=== PATIENT | female | born 1975 | race Caucasian/White ===

== ENCOUNTER 2021-06-04 02:06 | Day surgery (SDC) | payer OTHER, SELFPAY ==
[2021-06-01 12:47] VITALS: BMI 23.9
--- NOTE | 2021-06-01 13:03 | PC.NURSE ---
Report to the Outpatient Waiting Room, entrance under the green pavilion located off [facility], at time 1000 on date 06/04/21. OR Time: 1200. - You and your visitor will be asked a series of questions to screen for COVID 19 for your protection. - A mask is required within the hospital. - Only one visitor is allowed at this time. Patient visitors will be guided where to wait when not with patient. Preoperative COVID Testing Requirements: No COVID Test needed if: (proof is required; if not received patient will have Rapid Test prior to entry) - Patient has received COVID Vaccine at least 14 days prior to procedure date or - Patient has positive COVID test result within last 90 days of surgery date. COVID Test needed if above criteria is not met If not COVID vaccinated a COVID test must be conducted within 72 hours of surgery and patient is asked to isolate self from time of testing until procedure. You will go to the [facility] for your COVID testing. The [facility] is located at the corner of [address] [facility]. You will only be called if COVID results are positive and your surgeon may reschedule your elective surgery date. Patients may have clear liquids (water, carbonated beverages, clear teas, apple juice) until 3 hours prior to surgery with a maximum of 20 ounces. - No food from midnight until time of surgery - Infants may have breast milk until 4 hours before surgery, infant formula 6 hours prior to surgery. - Children will be allowed to drink immediately following surgery. If applicable, please bring a bottle or sippy cup to assist with drinking. Juice, water, soda, and popsicles are readily available. For infants on formula, please bring formula the day of surgery. Pacifiers are allowed. Take the following medications with a SIP of water the morning of surgery: BUPROPION, LAXAPRO, GABAPENTIN, FLEXERIL, ATIVAN, TRAMADOL (IF NEEDED) Medications to discontinue per physician VITAMINS Date to take last dose: 3 DAYS PRE-OP Please no make-up, nail costa rican, hairspray, perfume, deodorant, or body powder the day of surgery. No jewelry (including any body piercings) or valuables the day of surgery, leave them at home. Please take a shower or bath the night before, or the morning of, surgery with an antibacterial soap. Wear comfortable, loose fitting clothing. Children are encouraged to wear pajamas. - Jewelry must be removed prior to entering the operating room. Rings and piercings that are not removed may be cut off. - The hospital will not accept responsibility for valuables. - Please leave all valuables, including medications, at home the day of surgery. If you are going home after surgery, a licensed delivery motorcycle driver must drive you home. - NO public transportation without another adult. - We recommend that an adult stay with you for 24 hours following discharge. - We also recommend that you do not drive, make important decision, drink alcoholic beverages, or take any drugs that were not prescribed by your health care provider for at least 24 hours after your discharge time. For Pediatric surgeries, we recommend two adults accompany the child home (only one inside the building at this time). Follow any additional instructions given to you from your surgeon. Telephone instructions given to LAWSON ADAM and asked if any additional questions and then verbalized understanding. Patient advised to call surgeon office or pre surgery nurse liaison [phone] if any additional questions.
[2021-06-04] VITALS (8 sets, daily range): BP systolic 93–107; BP diastolic 59–68; PULSE 61–84; RESP 16–20; TEMP 36.1–36.4; O2SAT 96–100
--- NOTE | 2021-06-04 07:49 | ECG_ITS ---
Measurements Intervals [place] Rate: 69 P: 64 NH: 121 QRS: 49 QRSD: 90 T: 55 QT: 390 QTc: 419 Interpretive Statements SINUS RHYTHM BASELINE WANDER- V4-V6 NORMAL ECG Electronically Signed On 06-04-2021 10:47:53 [employer] by Star Garrett D.O.
--- NOTE | 2021-06-04 11:02 | WPDANESEPPF ---
Anes - Initial Pre Proc Eval Procedure: Operation Date: 06/04/21 12:00 Proposed Procedures p Laparoscopic Bilateral Salpingo Oophorectomy - Dwaine Bowen MD Date/Time: 06/04/21 11:02 Surgeon: Dwaine Bowen MD Pre Op Diagnosis: malignant tumor of breast Patient Data Age: 45 Gender: F Height: 1.6 m Weight: 59.4 kg Last Vital Signs Temp 36.1 C L 06/04/21 10:23 Pulse 84 06/04/21 10:23 Resp 16 06/04/21 10:23 BP 93/61 L 06/04/21 10:23 Pulse Ox 100 06/04/21 10:23 Allergies Allergy/AdvReac Type Severity Reaction Status Date / Time goserelin [From Zoladex] Allergy Severe Anaphylaxis Verified 06/04/21 10:45 acetaminophen [From Tylenol] Allergy Intermediate Other Verified 06/04/21 10:45 lisinopril AdvReac Intermediate Cough Verified 06/04/21 10:45 Home Medications Medication Instructions Recorded Confirmed Type bupropion HCl 450 mg PO DAILY 06/01/21 06/04/21 History cholecalciferol (vitamin D3) 50 mcg PO DAILY 06/01/21 06/04/21 History [Vitamin D3] cyclobenzaprine [Flexeril] 10 mg PO TID PRN 06/01/21 06/04/21 History denosumab [Prolia] 60 mg SUBCUT [id number] 06/01/21 06/04/21 History dexamethasone 4 mg PO DAILY 06/01/21 06/04/21 History ergocalciferol (vitamin D2) 1,250 mcg PO WEEKLY 06/01/21 06/04/21 History [Vitamin D2] escitalopram oxalate [Lexapro] 20 mg PO DAILY 06/01/21 06/04/21 History ferrous sulfate [Iron (ferrous 325 mg PO DAILY 06/01/21 06/04/21 History sulfate)] gabapentin 300 mg PO TID 06/01/21 06/04/21 History hydrochlorothiazide 12.5 mg PO DAILY 06/01/21 06/04/21 History lorazepam [Ativan] 1 mg PO DAILY PRN 06/01/21 06/04/21 History prochlorperazine maleate 10 mg PO Q6H PRN 06/01/21 06/04/21 History [Compazine] rosuvastatin [Crestor] 10 mg PO DAILY 06/01/21 06/04/21 History tramadol 50 mg PO Q6H PRN 06/01/21 06/04/21 History Patient hx anesthesia problems: none Family hx anesthesia problems: none Results Review: All pre-operative results and documents have been reviewed as part of the pre-operative evaluation. PMFSH Past Medical History Medical History Anxiety Breast cancer Depression HTN (hypertension) Hyperlipidemia Metastases to the liver Smoker Social History Social History Smoking packs per day: 0.5 Smoking cigarettes per day: 10.0 Years smoked: 15 Smoking pack-years: 7.50 Smoking status: Current every day smoker Tobacco type: cigarettes Alcohol intake: former Alcohol use details: A FIFTH/DAY - QUIT JUL 2020 Substance use: current Substance use type: marijuana Other substance usage details: SMOKE/VAPE Last use: 05/31/21 Living arrangements: with family Additional living arrangements comments: WITH SON Spiritual care concerns: No Anes - Eval Final PreProcedure Day of Procedure 06/04/21 11:02 Patient weight: normal Heart: regular rate and rhythm Lungs: clear to auscultation and normal air movement Airway: Mallampati scale class II Neurological: alert and oriented Last oral intake: >/= 8 hours ASA classification: III Emergent: no Anesthetic plan: proceed Anesthesia type and monitoring: general ETT Results Review: All pre-operative results and documents have been reviewed as part of the pre-operative evaluation. Informed Consent: The patient's anesthetic plan and its attendant risks and benefits were discussed with the patient/family/POA. Questions were solicited and answers provided to the satisfaction of the patient/family/POA.
[2021-06-04] MEDS: LACTATED RINGERS 1,000 ML 30 ML IV CONT ×2 (11:12→13:10)
[2021-06-04] MEDS: KETOROLAC 15 MG/ML VIAL (*BKC) IV PUSH (11:13)
[2021-06-04 11:18] LABS: Hematocrit 33.9 % (37.0-47.0); Hemoglobin 11.1 g/dL (12.0-15.0)
--- NOTE | 2021-06-04 11:59 | WPDHPUPDATE1 ---
History and Physical Update Update Date/Time: 06/04/21 11:59 History and Physical has been reviewed, including an updated exam of the patient. There are NO changes in the patient's condition. Risks, benefits, and alternatives have been discussed and questions answered. Patient agrees to proceed with procedure.
--- NOTE | 2021-06-04 13:28 | W.PM.PROC2 ---
Procedure Note - Detailed Date of Procedure 06/04/21 Pre-op Diagnosis malignant tumor of breast Post-op Diagnosis same Procedure Performed Laparoscopic bilateral salpingo-oophorectomy Surgeon Dwaine Bowen MD Anesthesia general Indications Pelvic pain Findings normal female pelvic anatomy, normal-appearing upper abdomen Description of Procedure The patient was taken to the operating room. She was prepped and draped in the dorsal lithotomy position after induction general anesthesia. A 5 mm incision was made with a scalpel on the abdominal skin in the left upper quadrant of the abdomen. A 5 mm trocar was inserted into the intra-abdominal cavity under direct visualization the scope. In the same fashion an 11mm left lower quadrant trocar was inserted and a 5 mm infraumbilical trocar was inserted. A 4th trocar was placed in the right lower quadrant. It was a 5 mm trocar. It was placed in identical fashion. This was used to examine the upper abdomen. A defect was made in the omentum when inserting the trocar. Was found to be a minor disruption of the omentum. the ovary was raised on the right. The ureter was identified. The infundibulopelvic ligament was cauterized transected with LigaSure cautery. The para ovarian tissue and mesosalpinx was cauterized in a stepwise fashion from laterally to medially moving towards the uterine cornua. This was the mesosalpinx between the fallopian tube and the round ligament. The suspensory ligament the ovary and fallopian tube were cauterized transected the uterine cornua. The procedure was repeated on the left. The left ovary and tube were removed. They were placed in endobag, both ovaries and tubes. They were taken out the left lower quadrant trocar site. The pelvis was irrigated. The pneumoperitoneum was reduced. The trocars were removed. Skin was closed with subcuticular 4 micro. The patient's incisions were covered with Dermabond. She was taken recovery room in stable condition. Sponge lap and needle counts were correct x2. Estimated Blood Loss 5 Pathology yes Complications No immediate complications Condition stable Disposition same day
[2021-06-04 13:29] LABS: Anion Gap 10 mmol/L (8-16); Blood Urea Nitrogen 12 mg/dL (7-17); Calcium 8.9 mg/dL (8.4-10.2); Carbon Dioxide 22 mmol/L (22-30); Chloride 108 mmol/L (98-107); Estimated CRCL calculation 83 ml/min; Estimated Glomerular Filt Rate > 60; Glucose 100 mg/dL (65-110); Potassium 3.9 mmol/L (3.4-5.0); Sodium 140 mmol/L (137-145)
[2021-06-04] MEDS: fentaNYL CITRATE INJ (*CRX) 100 MCG/2 ML VIAL 25 MCG IV PUSH ×8 (13:32→14:09)
[2021-06-04] MEDS: oxyCODONE HCL (*CRX) 5 MG TAB IR PO (14:33)
== END 2021-06-04 15:12 | disposition home or self-care (01) ==
PROVIDERS: Anesthesiology; PCP Nurse Practitioner Adult Health; Visit Provider Obstetrics & Gynecology
PROC: (CPT 49320; principal; 2021-06-04 12:00)
DX: Z40.02 Encounter for prophylactic removal of ovary(s) (principal); C50.919 Malignant neoplasm of unspecified site of unspecified female breast; C78.7 Secondary malignant neoplasm of liver and intrahepatic bile duct; Z17.0 Estrogen receptor positive status [ER+]; F12.90 Cannabis use, unspecified, uncomplicated; F17.210 Nicotine dependence, cigarettes, uncomplicated; F41.8 Other specified anxiety disorders; I10 Essential (primary) hypertension; E78.5 Hyperlipidemia, unspecified
CPT/HCPCS: 58661; 36415; 80048; 85014; 85018; 88305; 93005; A9270; J1100; J1885; J2250; J2405; J2704; J2710; J3010; J7030; J7120

== ENCOUNTER 2021-06-05 06:54 | Emergency (ER) | payer OTHER, SELFPAY ==
[2021-06-05 07:17] VITALS: BP 117/60; PULSE 69; RESP 19; TEMP 36.4; O2SAT 99
--- NOTE | 2021-06-05 07:37 | ED.SKABFB ---
HPI - Skin/Abscess/Foreign Bdy General Chief complaint: Skin/Abscess/Foreign Body Stated complaint: post op bleeding - belly button Time Seen by Provider: 06/05/21 07:14 Source: patient Mode of arrival: ambulatory Limitations: no limitations History of Present Illness HPI narrative: This is a 45 year old female who presents for evaluation of postoperative bleeding s/p laparoscopic bilateral salpingo oophorectomy yesterday. This morning around around 630 am patient developed bleeding from her umbilical incision. It stopped after 15 minutes but she reports Dr. Bowne recommended that she come to ER. PAtient denies abdominal pain, constipation, nausea or vomiting. Bleeding has stopped. She denies taking any blood thinning medication. Related Data Home Medications Medication Instructions Recorded Confirmed Prolia 60 mg SUBCUT [id number] 06/01/21 06/04/21 bupropion HCl 450 mg PO DAILY 06/01/21 06/04/21 cholecalciferol (vitamin D3) 50 mcg PO DAILY 06/01/21 06/04/21 [Vitamin D3] cyclobenzaprine 10 mg PO TID PRN 06/01/21 06/04/21 dexamethasone 4 mg PO DAILY 06/01/21 06/04/21 ergocalciferol (vitamin D2) 1,250 mcg PO WEEKLY 06/01/21 06/04/21 [Vitamin D2] escitalopram oxalate [Lexapro] 20 mg PO DAILY 06/01/21 06/04/21 ferrous sulfate [Iron (ferrous 325 mg PO DAILY 06/01/21 06/04/21 sulfate)] gabapentin 300 mg PO TID 06/01/21 06/04/21 hydrochlorothiazide 12.5 mg PO DAILY 06/01/21 06/04/21 lorazepam [Ativan] 1 mg PO DAILY PRN 06/01/21 06/04/21 prochlorperazine maleate 10 mg PO Q6H PRN 06/01/21 06/04/21 [Compazine] rosuvastatin [Crestor] 10 mg PO DAILY 06/01/21 06/04/21 tramadol 50 mg PO Q6H PRN 06/01/21 06/04/21 Allergies Allergy/AdvReac Type Severity Reaction Status Date / Time goserelin [From Zoladex] Allergy Severe Anaphylaxis Verified 06/05/21 07:21 acetaminophen [From Tylenol] Allergy Intermediate Other Verified 06/05/21 07:21 lisinopril AdvReac Intermediate Cough Verified 06/05/21 07:21 Review of Systems Review of Systems: All systems reviewed & are unremarkable except as noted in HPI and below PMFSH Past Medical History Medical History Anxiety Breast cancer Depression HTN (hypertension) Hyperlipidemia Metastases to the liver Smoker Surgical History Surgical History (Updated 06/05/21 @ 16:00 by Patricia Osman MD) Status post bilateral salpingectomy Social History Social History Smoking packs per day: 0.5 Smoking cigarettes per day: 10.0 Years smoked: 15 Smoking pack-years: 7.50 Smoking status: Current every day smoker Tobacco type: cigarettes Alcohol intake: former Alcohol use details: A FIFTH/DAY - QUIT JUL 2020 Substance use: current Substance use type: marijuana Other substance usage details: SMOKE/VAPE Last use: 05/31/21 Additional living arrangements comments: WITH SON Spiritual care concerns: No Exam Const: General: no acute distress and alert Orientation/consciousness: patient oriented x3 Eyes: EOM: EOMs intact bilaterally Resp: Effort & Inspection: normal respiratory effort GI: GI Palp: Yes Soft to palpation, No Tenderness to palpation present (GI), No Guarding due to palpation present (GI) and No Rigid due to palpation Other: Left upper quadrant incision intact , no drainage, there is skin adhesive in place infraumbilical incision with dried blood on incision, no active bleeding, no open areas, no bruising , no erythema R ight lower incision intact Neuro: General: patient oriented x3, moves all extremities and CN's II-XI intact bilaterally Psych: Mental Status: mental status grossly normal Affect: normal affect Course Reevaluation(s) Reevaluation #1: I Applied pressure dressing to patient's infraumbilical incision. Discussed with patient and family discharge plan and treatment. Date: 06/05/21 Time: 08:04 Consultations Consultation #1: I Spoke with Dr. Diaz. She recommends applying pressure bandage. No other recommendatio
== END 2021-06-05 08:16 | disposition home or self-care (01) ==
PROVIDERS: Emergency Provider General Practice; PCP Nurse Practitioner Adult Health
DX: L76.22 Postprocedural hemorrhage of skin and subcutaneous tissue following other procedure (principal); I10 Essential (primary) hypertension; E78.5 Hyperlipidemia, unspecified; F17.210 Nicotine dependence, cigarettes, uncomplicated; Z85.3 Personal history of malignant neoplasm of breast; Z85.05 Personal history of malignant neoplasm of liver
CPT/HCPCS: 99282